=== PATIENT | male | born 1955 | race Caucasian/White ===

== ENCOUNTER 2024-10-27 12:33 | Emergency (ER) | payer MEDICARE, OTHER, SELFPAY ==
[2024-10-27 12:42] VITALS: BP 185/92
[2024-10-27 13:20] VITALS: BMI 23.5
[2024-10-27 13:21] VITALS: BP 184/96
[2024-10-27] MEDS: NITROSTAT (SUBLINGUAL) 0.4 MG SL (13:24)
[2024-10-27 13:27] LABS: % Basophils 0.6 % (0-2); % Eosinophils 4.7 % (0-6); % Immature Granulocytes 0.2 % (0-0.5); % Lymphocytes 27.6 % (20.5-51.1); % Monocytes 6.3 % (1.7-9.3); % Neutrophils 60.6 % (42.2-75.2); Absolute Basophils 0.1 10^3/uL (0-0.2); Absolute Eosinophils 0.5 10^3/uL (0-0.7); Absolute Lymphocytes 2.7 10^3/uL (1.2-3.4); Absolute Monocytes 0.6 10^3/uL (0.1-0.6); Absolute Neutrophils 5.9 10^3/uL (1.4-6.5); Hematocrit 45.2 % (39.0-52.0); Hemoglobin 15.7 g/dL (13.0-18.0); Mean Corp Hgb Conc. 34.7 g/dL (33.0-37.0); Mean Corpuscular Hgb 31.2 pg (27.0-31.0); Mean Corpuscular Volume 89.9 fL (80.0-94.0); Mean Platelet Volume 9.9 fL (7.4-10.4); Nucleated Red Blood Cells % 0 % (-); Platelet Count 212 10^3/uL (130-400); Red Blood Cell Count 5.03 10^6/uL (4.70-6.10); Red Cell Dist. Width 14.3 % (11.5-14.5); White Blood Cell Count 9.7 10^3/uL (4.8-10.8)
[2024-10-27] MEDS: LOW STRENGTH ASPIRIN 162 MG PO (13:28)
[2024-10-27 13:37] LABS: ALT (SGPT) 45 U/L (0-50); AST (SGOT) 29 U/L (17-59); Albumin 4.1 g/dl (3.5-5.0); Alkaline Phosphatase 105 U/L (38-126); Blood Urea Nitrogen 19 mg/dl (9-20); Calcium 9.1 mg/dl (8.4-10.2); Carbon Dioxide 29 mmol/L (22-30); Chloride 109 mmol/L (98-107); Estimated Creatinine Clearance 116 ml/min; Glucose 115 mg/dl (70-99); Magnesium 2.3 mg/dl (1.6-2.3); Potassium 4.3 mmol/L (3.5-5.1); Sodium 143 mmol/L (135-145); Total Bilirubin 1.4 mg/dl (0.2-1.3); Total Protein 7.7 g/dl (6.3-8.2); eGFR > 60.00
[2024-10-27 13:48] LABS: Troponin I 0.018 ng/ml
[2024-10-27 14:00] VITALS: BP 143/76
[2024-10-27 15:00] VITALS: BP 129/83
[2024-10-27 16:00] VITALS: BP 132/74
--- NOTE | 2024-10-27 16:49 | ED.GENMED ---
History of Present Illness
General
Chief Complaint: Chest Pain
Source: patient
Exam Limitations: none
Time Seen by Provider: 10/27/24 12:59
Nursing documentation reviewed up to this point in time: agreed with
History of Present Illness
History of Present Illness:
Patient with history of CAD, with multiple cardiac stent placement, with most recent stent in 2019, presents to ED secondary to intermittent chest pain over the past 24 hours. Patient reports working on his car, prior to onset of his pain, with
concern that it could be musculoskeletal. Patient proceeded to take aspirin and ibuprofen with complete resolution symptoms, which went to sleep last night. He woke up this morning with similar pain. Unfortunately with ibuprofen, his pain has
persisted. Chest pain described as dull, nonradiating, without any alleviating factors, but worse with certain movement, especially when bending his neck. Denies direct trauma. Patient states that his symptoms are different from when he received
cardiac stents. Denies recent travel or surgery. Denies leg pain or swelling. Denies fever or chills. Denies recent illness. Denies recent change in medications or diet. Of arrival, patient is found to be in atrial fibrillation, which patient
has had previously. Patient states that he longer takes Eliquis.
Past History
Past History
ED Past Medical History: Arrthythmia and CAD
ED Past Surgical History: Cardiac, Tonsilectomy and Other (Patient has a history of hernia repair)
Social History
Tobacco: Non-smoker
Personal:
Living: with family
Employment: Employed
Family History
Family History: Early CAD (father NV 49)
Review of Systems
Review of Systems
Allergies reviewed?: Yes
All Other Systems: ROS reviewed and negative except as documented in HPI and ROS
Constitutional: Reports no symptoms
EENT: Reports no symptoms
Respiratory: Reports no symptoms; Denies trouble breathing
Cardiac: Reports chest pain
ABD/GI: Reports no symptoms; Denies nausea or vomiting
Musculoskeletal: Reports no symptoms
Skin: Reports no symptoms
Neurological: Reports no symptoms
Phy Exam
Physical Exam
Physical Exam:
Physical Exam
General: no apparent distress, not acutely ill. afebrile
Head: nc/at. eomi
Neck: supple. no meningeal signs.
Heart: irregularly irregular, no murmur.
Lungs: no acute respiratory distress. clear bilaterally. chest wall nontender to palpation
Abdomen: normal bowel sounds. not tender.
Neuro: alert and oriented x 3. no focal neurological deficits
Skin: no rash
Psychiatric: well kept. interactive and cooperative
Extremities: no edema. no calf tenderness.
Scores
Heart Score for Chest Pain Patients
STEMI patient?: No
History: Slightly or Non-Suspicious
ECG: Normal
Age: >/= 65 years
Risk Factors: >/= 3 Risk Factors or History of CAD
Troponin: </= Normal Limit
Heart Score for Chest Pain Patients: 4
Heart Score Risk: 20.3% MACE over next 6 weeks
Course
Orders/Labs/Results
Orders:
Orders
10/27/24 12:35
ECG [Electrocardiogram (*1)] Urgent
Reason for Study: Chest Pain
EKG- Treatment ONCE
10/27/24 13:15
Complete Blood Count/With Diff Urgent
Comprehensive Metabolic Panel Urgent
Magnesium Urgent
Troponin I Urgent
10/27/24 13:23
Nitroglycerin Sublingual [Nitrostat (Sublingual)] 0.4 mg SL NOW STA
10/27/24 13:24
Aspirin Chewable [Low Strength Aspirin] 162 mg PO NOW STA
Nitroglycerin Sublingual [Nitrostat (Sublingual)] 0.4 mg SL NOW STA
10/27/24 16:44
Apixaban [Eliquis] 5 mg PO NOW STA
Abnormal Lab Results
10/27/24
13:15
MCH 31.2 H pg
(27.0-31.0)
Chloride 109 H mmol/L
(98-107)
Glucose 115 H mg/dl
(70-99)
Total Bilirubin 1.4 H mg/dl
(0.2-1.3)
10/27/24 13:15
10/27/24 13:15
Vital Signs
Initial and Last Documented VS:
Initial Vital Signs
Temp Pulse Resp BP Pulse Ox
98.2 F 82 18 185/92 97
10/27/24 12:42 10/27/24 12:42 10/27/24 12:42 10/27/24 12:42 10/27/24 12:42
Last Documented Vital Signs
Temp Pulse Resp BP Pulse Ox
98.2 F 65 15 144/88 97
10/27/24 12:42 10/27/24 16:54 10/27/24 16:54 10/27/24 16:54 10/27/24 16:54
MDM/Problems Addressed
MDM/Problems Addressed:
Discussed patient's presentation and workup with on-call cardiology, Dr. Best, who also spoke with the patient via phone prior to arrival in ED. Feels the patient can be discharged home at this time, as pain appears to be musculoskeletal in
etiology. Does recommend starting patient on Eliquis due to atrial fibrillation. Cardiology office will contact patient at home for an urgent outpatient follow-up/evaluation this week.
Patient does not wish to start Eliquis, and states that he has already had discussion with his primary heel trimmer, Dr. JUNIOR King regarding his wishes. Patient does understand the risk of stroke involved, when not treated appropriately.
Patient advised to return to ED with recurrent chest pain or worsening symptoms.
*EKG
Interpreted by ED Provider?: Yes
EKG Intrepretation Date: 10/27/24
Heart Rate: 87
Rate: normal
Rhythm: a-fib
[place]: normal axis
QRS Pattern: right bundle branch block
*Critical Care Note
Total Time (30-74mins, 75-104mins- exclusive of procedures): Not Applicable
ED Attending Note
-
Portions of this chart may have been created with voice recognition software.� Occasional wrong word or��sound alike� substitutions may have occurred due to the inherent limitations of voice recognition software.
Discharge Plan
Departure
Patient Disposition: Home (Routine Discharge)
Date of Disposition: 10/27/24
Time of Disposition: 16:51
Patient with high blood pressure during this ER visit?: Yes
Condition: Fair
Discharge Problem:
Atrial fibrillation, Chest pain
Instructions: Atrial fibrillation - Discharge instructions, Chest Pain DCA Follow Up
Prescriptions:
New
Eliquis 5 mg tablet
5 mg PO BID Qty: 60 0RF
No Action
hlbllkcn-[id number]-[id number] gluconate [Centrum] 9 MG/15 ML liquid
1 dose PO DAILY
amlodipine 5 MG tablet
5 mg PO DAILY
atorvastatin 80 MG tablet
80 mg PO QPM Qty: 30 11RF
clopidogrel 75 MG tablet
75 mg PO DAILY Qty: 30 11RF
pantoprazole 40 MG tablet,delayed release (DR/EC)
40 mg PO DAILY Qty: 30 11RF
apixaban [Eliquis] 5 MG tablet
5 mg PO BID Qty: 60 11RF
aspirin 81 MG tablet,delayed release (DR/EC)
81 mg PO DAILY Qty: 0 0RF
Patient Comments:
02/16/2020- patient took 4 low dose aspirin this morning
Rx Instructions:
continue for 1 month only then STOP!
Referrals:
Nicholas King MD [Family Provider] -
Activity Restrictions/Additional Instructions:
As discussed, please follow-up with your heel trimmer this week for reevaluation. Please consider return to ED with worsening symptoms. You will be given prescription for Eliquis, which I would strongly like you to consider taking, secondary to
risk for stroke involved with atrial fibrillation.
Interventions
Interventions:
*Risk Screen - Suicide Last Done: 10/27/24 12:42
*General Assessment Last Done: 10/27/24 12:42
*Neglect/Abuse Screening Last Done: 10/27/24 12:42
*ED- Fall Risk Assessment Last Done: 10/27/24 13:20
*ED COVID-19 Vaccine History Last Done: 10/27/24 13:20
*Nursing Disposition Last Done: 10/27/24 17:07
ED- Cardiac Assessment Last Done: 10/27/24 13:20
Discharge Date and Time
Discharge Date/Time: 10/27/24 17:07
Print Language: NAURUAN
[2024-10-27 16:54] VITALS: BP 144/88
== END 2024-10-27 17:07 | disposition home or self-care (01) ==
LOC: EMR 12:33
PROVIDERS: EMERGENCY PHYSICIAN Emergency Medicine; FAMILY PHYSICIAN Internal Medicine Cardiovascular Disease
DX: I48.91 Unspecified atrial fibrillation (principal); R07.89 Other chest pain; I45.10 Unspecified right bundle-branch block; I25.10 Atherosclerotic heart disease of native coronary artery without angina pectoris; Z95.5 Presence of coronary angioplasty implant and graft
CPT/HCPCS: 99284; 80053; 83735; 84484; 85025; 93005

== ENCOUNTER → 2024-11-27 15:57 | Outpatient (REF) | payer MEDICARE, OTHER, SELFPAY | LOC: RCS 15:57 | PROVIDERS: ATTENDING PHYSICIAN Physician Assistant Medical | DX: R07.9 Chest pain, unspecified (principal); I25.10 Atherosclerotic heart disease of native coronary artery without angina pectoris; I42.9 Cardiomyopathy, unspecified | CPT/HCPCS: 93306 ==

== ENCOUNTER → 2024-12-05 11:10 | Outpatient (REF) | payer MEDICARE, OTHER, SELFPAY ==
[2024-12-05 08:46] LABS: HDL Cholesterol 58 mg/dl; LDL Cholesterol, Calculated 153 mg/dl; Total Cholesterol 224 mg/dl (50-199); Triglyceride 66 mg/dl (10-149); Very Low Density Lipoprotein 13 mg/dl (0-30)
== END ==
LOC: HWRCS 11:10
PROVIDERS: ATTENDING PHYSICIAN Physician Assistant Medical
DX: R07.9 Chest pain, unspecified (principal); I25.10 Atherosclerotic heart disease of native coronary artery without angina pectoris; I42.9 Cardiomyopathy, unspecified; E78.5 Hyperlipidemia, unspecified
CPT/HCPCS: 36415; 78452; 80061; 93017; A9500; J2785